=== PATIENT | female | born 1975 | race Caucasian/White ===

== ENCOUNTER 2022-06-05 12:42 | Emergency (ER) | payer OTHER, SELFPAY ==
[2022-06-05 13:16] VITALS: BP 124/79; PULSE 98; RESP 18; TEMP 36.6; O2SAT 98
--- NOTE | 2022-06-05 13:33 | CRLHL7_ITS ---
For Patients: As a result of the Cures Act, medical imaging exams and procedure reports are released immediately into your electronic medical record. You may view this report before your referring provider. If you have questions, please contact your health care provider. Indication: Fall on outstretched hand, elbow pain Comparison: None available. Technique: AP, lateral, and oblique views right elbow were obtained. Findings: There is a nondisplaced fracture of the radial head. No other displaced injuries are appreciated. The joint spaces are grossly preserved. There is moderate elbow joint effusion. Impression: Nondisplaced fracture of the radial head with elbow joint effusion. Dictated by Calvin Sebastian MD @ 06/05/2022 2:49:21 PM (Electronically Signed)
[2022-06-05] MEDS: ACETAMINOPHEN 500 MG TABLET 1000 MG PO (14:23)
--- NOTE | 2022-06-06 00:48 | ED_ITS ---
HPI - Extremity Injury (Upper) General Chief Complaint: Extremity Pain/Injury, Upper Stated Complaint: Fell, R arm injury Time Seen by Provider: 06/05/22 13:21 History of Present Illness HPI narrative: 46-year-old woman presenting to the emergency department complaint of right arm pain. Evidently slipped while at work sustaining a FOOSH type injury of her right arm. She is right-handed. No shoulder area pain. Did not strike her head. There was no loss of consciousness. No shortness of breath or chest pain. I believe has taken some ibuprofen. Describes pain radiating out somewhat from the elbow. Not having pain at the wrist or in her hand. No loss of sensation. Works as a remedial teacher. Related Data Home Medications Medication Instructions Recorded Confirmed tamoxifen 20 mg tablet 20 mg PO DAILY 06/05/22 06/05/22 venlafaxine 75 mg tablet 75 mg PO DAILY 06/05/22 06/05/22 Allergies Allergy/AdvReac Type Severity Reaction Status Date / Time naproxen [From Aleve] Allergy Mild Hives Verified 06/05/22 13:21 Review of Systems Status of ROS: Reports: 6 or more systems reviewed and unremarkable except as noted in History and below [facility] Social History Smoking Status: Never smoker Do you use any of these nicotine containing products: None Second hand tobacco smoke exposure: No How often do you have a drink containing alcohol: monthly or less How many standard drinks containing alcohol do you have on a typical day: 1 or 2 How often do you have six or more drinks on one occasion: Never AUDIT-C Alcohol total score: 1 Non-prescribed substance use: denies use Exam Narrative: Exam Narrative: Pleasant. Right arm on pillow. Slightly flexed at the elbow. Head looks to be atraumatic. GCS of 15. Cranial nerves 2-12 intact. Becomes a little tearful during time here in the ER. Breathing easily. No pain to palpation about the back or neck. No pain about the shoulder. Firm swelling in the radial ulnar groove about the right elbow. No erythema. Supination and pronation does cause pain in the upper forearm/elbow. No pain to palpation about the distal forearm/radius. Opening closing hand without difficulty. Intact sensation Const: Vital Signs, click to edit/add: Vital Signs - 24 hr 06/05/22 13:16 Temperature 97.8 F Pulse Rate [Right Pulse Oximeter] 98 Respiratory Rate 18 Blood Pressure [Le ft Upper Arm] 124/79 Pulse Oximetry 98 Oxygen Delivery Me thod Room Air Documenting provider has reviewed patient's vital signs: yes Course Vital Signs Vital signs: Initial Vital Signs Temperature 97.8 F 06/05/22 13:16 Temperature Source Temporal Artery Scan 06/05/22 13:16 Pulse Rate 98 06/05/22 13:16 Pulse Rhythm 06/05/22 13:16 Pulse Strength 3+ Normal 06/05/22 13:16 Respiratory Rate 18 06/05/22 13:16 Blood Pressure 124/79 06/05/22 13:16 Blood Pressure Mean 94 06/05/22 13:16 Blood Pressure Position Sitting 06/05/22 13:16 Pulse Oximetry 98 06/05/22 13:16 Oxygen Delivery Method 06/05/22 13:16 Vital Signs Temperature 97.8 F 06/05/22 13:16 Pulse Rate 98 06/05/22 13:16 Respiratory Rate 18 06/05/22 13:16 Blood Pressure 124/79 06/05/22 13:16 Pulse Oximetry 98 06/05/22 13:16 Oxygen Delivery Method 06/05/22 13:16 Temperature 97.8 F 06/05/22 13:16 Pulse Rate 98 06/05/22 13:16 Respiratory Rate 18 06/05/22 13:16 Blood Pressure 124/79 06/05/22 13:16 Pulse Oximetry 98 06/05/22 13:16 Oxygen Delivery Method 06/05/22 13:16 MDM - Extremity Injury (Upper) MDM Narrative Medical decision making narrative: I would suspect given the swelling/joint effusion around the elbow that there is a fracture in the elbow. Considering supination pronation of forearm suspect radial head fracture. Ordered for ice and acetaminophen. Three-view x-ray of the right elbow reviewed by me with posterior fat pad anterior sail sign mildly present confirming joint effusion, and what looks to be a nondisplaced fracture of the radial head that I think tracks into the articular surface. Given arm sling. Would be encouraging early mobility. Discharge Plan Discharge Clinical Impression: Fracture of head of radius Patient Disposition: Home, Self-Care Condition: Stable Additional Instructions: Rest/protect over this next week by wearing the arm sling. Can start stretching exercises now as able. Please see handout. Can take up to 800 mg of ibuprofen or up to 1000 mg of acetaminophen per dose. Alternative to the ibuprofen might be up to 500 mg of naproxen 2 times daily. Ice your elbow as discussed a few times daily over the next few days. Follow-up between 1-2 weeks for re-evaluation with primary care or Orthopedics. Orthopedics phone number locally is [phone] Prescriptions: No Action venlafaxine 75 mg tablet 75 mg PO DAILY tamoxifen 20 mg tablet 20 mg PO DAILY Follow Up/Referrals: Denae Ryan MD [Primary Care Provider] - Stand Alone Forms: [employer] Info Instructions
== END 2022-06-05 15:56 | disposition home or self-care (01) ==
PROVIDERS: Emergency Provider Family Medicine; PCP Family Medicine
DX: S52.124A Nondisplaced fracture of head of right radius, initial encounter for closed fracture (principal); W01.0XXA Fall on same level from slipping, tripping and stumbling without subsequent striking against object, initial encounter
CPT/HCPCS: 73080; 99283; A9270

== ENCOUNTER 2022-09-04 16:15 | Outpatient (RCR) | payer OTHER, SELFPAY | END 2022-09-07 09:12 | disposition home or self-care (01) | PROVIDERS: PCP Family Medicine; Visit Provider Physician Assistant Surgical | DX: S52.123A Displaced fracture of head of unspecified radius, initial encounter for closed fracture (principal); Z51.89 Encounter for other specified aftercare | CPT/HCPCS: 97110; 97140; 97165; X5282 ==

== ENCOUNTER 2024-07-26 14:09 | Outpatient (CLI) | payer BC, SELFPAY ==
--- NOTE | 2024-07-26 14:30 | CRLHL7_ITS ---
For Patients: As a result of the Century Cures Act, medical imaging exams and procedure reports are released immediately into your electronic medical record. You may view this report before your referring provider. If you have questions, please contact your health care provider. BILATERAL BREAST MRI WITHOUT AND WITH GADOLINIUM CLINICAL HISTORY: At increased risk for breast cancer due to personal history of right breast atypical lobular hyperplasia. Family history of breast cancer in her paternal grandmother. No current breast related concerns. INDICATION FOR BREAST MRI: High-risk screening breast MRI. COMPARISON STUDIES: Breast MRI 07/26/2023 and mammograms 01/05/2024 and 12/23/2022. CONTRAST: 15 mL IV Dotarem. TECHNIQUE: The patient was positioned prone using a breast coil. Multiple imaging sequences were obtained using 1-1.5 mm thick slices with no gap. The image sequences include T2-weighted STIR in the axial plane, T1-weighted nonfat-saturated gradient echo in the axial plane, pre- and post-contrast T1-weighted FLASH 3D with fat suppression in the axial plane, and T1-weighted FLASH high resolution 3D with fat suppression in the sagittal plane. Image post-processing was performed on a [employer] workstation. Complex 3D rendering including maximum intensity projections (MIPS) and volumetric renderings were obtained to optimize visualization of the extent of pathology and relationship to the nipple, skin, and chest wall. This aids in determining feasibility of breast conservation surgery. Subtraction, multiplanar reconstruction, mean curve determination, and angiogenesis mapping were also performed. The study was technically adequate. FINDINGS: Amount of Fibroglandular Tissue: Scattered fibroglandular tissue. Breast Background Enhancement: Mild. RIGHT Breast: There is no suspicious mass or non-mass enhancement. LEFT Breast: There is no suspicious mass or non-mass enhancement. Lymph Nodes: No abnormal morphology lymph nodes. IMPRESSIONS AND RECOMMENDATIONS: 1. No MRI evidence of malignancy in either breast. 2. Annual screening mammography is recommended. If clinically indicated, continued screening breast MRI may also be performed, staggered at six-month intervals with screening mammography. BI-RADS Category 1: Negative Dictated by Sri Simons MD @ 07/27/2024 1:02:20 PM (Electronically Signed)
== END 2024-07-26 14:10 | disposition home or self-care (01) ==
LOC: MRI 14:10
PROVIDERS: PCP Family Medicine; Visit Provider Clinical Nurse Specialist Adult Health
DX: Z12.39 Encounter for other screening for malignant neoplasm of breast (principal)
CPT/HCPCS: 77049; A9575

== ENCOUNTER 2024-08-18 14:31 | Emergency (ER) | payer BC, SELFPAY ==
--- OUTSIDE RECORDS SUMMARY | 2024-08-18 14:34 | XMS_ITS | Clinical Summary ---
Author Organization [facility] Address [address] [place] [address] Care Team Providers Care Community Health Nurse Supervisor Name Role Phone Connor, Denae Porter MD Primary Care Provider Allergies Active Allergy Reactions Criticality Noted Date Comments Naproxen Hives Medium 12/15/2008 Thimerosal Other - Describe In Comment Field 03/14/2007 Used a contact solution with this in and eyes puffed up. Medications multivitamin (MVI) tablet Take 1 tablet by mouth once daily. 0 1 Active cetirizine-pseudo ephedrine, 5-120 mg, (WAL-ZYR D) 5-120 mg tabletIndications :Subacute pansinusitis Take 1 tablet by mouth 2 times daily. 180 tablet 3 8 Active fluticasone (50 mcg per actuation) nasal solution (FLONASE)Indicati ons:Subacute pansinusitis SHAKE LIQUID AND USE 1 SPRAY IN EACH NOSTRIL TWICE DAILY 48 g 3 1 Active tamoxifen (NOLVADEX) 20 mg tabletIndications :Atypical lobular hyperplasia (ALH) of right breast TAKE 1 TABLET(20 MG) BY MOUTH EVERY DAY 90 Tablet 3 4 Active venlafaxine (EFFEXOR) 75 mg tabletIndications :Anxiety Take 1 Tablet (75 mg) by mouth once daily in the morning. 90 Tablet 2 4 Active Active Problems Problem Noted Date Diagnosed Date Anxiety 02/04/2015 Varicose veins of leg 11/18/2010 Allergic rhinitis, cause unspecified 08/15/2007 Cervical dysplasia Overview (02/27/2021): Age 22 Cryo of cerivix. Plan:Routine screening Encounters Date Type Department Care Team Description 08/03/2024 Orders Only [facility] Scanner 1 scan: (1-Ord) INCOMING RECORDS-MRI, [facility], 08/03/2024 08/02/2024 8:00 AM CDT Office Visit [facility] [address] [place] [address] Veronica Heath, GOOD HUMOR VENDOR Follow Up (High-risk breast cancer screening due to ALH) 08/02/2024 Travel 07/28/2024 Travel 07/28/2024 Orders Only [facility] [address] [place] [address] Veronica Heath, GOOD HUMOR VENDOR 1 scan: (1-Ord) [place], [facility] BREAST BI WO/W CON, 07/26/2024 06/21/2024 Orders Only [facility] [address] [place] [address] [address] Veronica Heath, GOOD HUMOR VENDOR <No scans attached> from Last 3 Months Immunizations Immunization Administration Dates Next Due AMB Influenza, IIV3 (Age >=3 years) Preserve Free (Flu Clinic Only) 03/09/2012 AMB Influenza, IIV3 (Age >=3 years)(Flu Clinic Only) 03/12/2011 AMB Influenza, IIV4 PF (=>6 mos Flulaval,Fluzone Fluarix)(Flu Clinic Only) 03/07/2020 COVID-19 vaccine (Edlogics NTMinuteKey 30mcg/0.3mL) 12YO+ BRAEDEN-SUCROSE PF, MDV 12/18/2021 Hepatitis A (Adult) 12/07/2002,07/16/1997 Hepatitis B (Adult) 06/29/2003,01/24/2003,2002 Influenza A (H1N1), Inactiva ami (Age >=3 Years) 05/22/2009 Influenza RIV4 (Age 18+ Year s) PRESERV FREE 03/20/2023 Influenza, IIV3 (Age 6-35 mos) 03/12/2011 Influenza, IIV3 (Age >=3 years) 02/10/2013,01/31 Influenza, IIV4 03/12/2022,,02/13/2019,2017,03/12/2017,02/18/2016,02/18/2015,0 02/12/2014 MMR 06/29/2003 Td (Age >=7 Years) 09/07/2002 Tdap 12/30/2020,11/18/2010 Tuberculin (PPD) 04/13/2008 Typhoid (injectable) 03/11/2018,12/07/2002 Zoster (Shingrix-RZV, recombinant) 01/05/2024 Family History Medical History Relation Name Comments Diabetes Father Insulin depende nt, DM type II Arthritis Maternal Grandfather Cancer-prostate Maternal Grandfather Heart Disease Maternal Grandfather heart attack Arthritis Maternal Grandmother Other Mother benign breast l umps Arthritis Paternal Grandfather Arthritis Paternal Grandmother Cancer Paternal Grandmother non hod gkins lymphoma Cancer-breast Paternal Grandmother post m enopausal Stroke Paternal Grandmother TIA's, dementia Cancer-colon No Family History Cancer-ovarian No Family History Relation Name Status Comments Father Maternal Grandfather Maternal Grandmother Mother Other bhupinder Alive Paternal Grandfather Paternal Grandmother Son pablo Alive Social History Tobacco Use Types Packs/Day Years Used Date Smoking Tobacco: Never Smokeless Tobacco: Never Tobacco Cessation:Counseling Given: Yes Comments:no exposure Alcohol Use Standard Drinks/Week Comments Yes 0 (1 standard drink = 0.6 oz pure alcohol) rarely, less than 1 drink per month PHQ-2 Answer Date Recorded PHQ-2 TOTAL SCORE 0 01/05/2024 Social Connections Answer Date Recorded Do you often feel lonely or isolated from those around you? 0 01/05/2024 Financial Resource Strain Answer Date R ecorded Difficulty of Paying Living Expenses 3 01/05/2024 Difficulty of Paying Living Expenses Not on file 01/05/2024 Food Insecurity Answer Date Recorded Do you worry your food will run out before you are able to buy more? 1 01/05/2024 Transportation Needs Answer Date Record ed Does lack of transportation keep you from medica l appointments? 1 01/05/2024 Does lack of transportation keep you from work, meetings or getting things that you need? 1 01/05/2024 Housing Stability Answer Date Recorded What is your housing situation today? 1 01/05/2024 Utilities Answer Date Recorded Do you have trouble paying f or utilities (for example, heat, electricity, water, phone)? 1 01/05/2024 Comments No Sex and Gender Information Value Date Recorded Sex Assigned at Not on file Legal Sex Female 5:27 AM FACTORER Gender Identity Not on file Sexual Orientation Not on file Obstetrics History Para Term AB IAB SAB Ectopic Multiple Livin g Live Births 1 1 1 Date Outcome GA Total Labor Labor/2nd/3rd Weight Sex Type Anes PTL Marilyn A1 A5 Name Clin SAB Last Filed Vital Signs Vital Sign Reading Time Taken Comments Blood Pressure 116/70 08/02/2024 7:54 AM CDT Pulse 88 08/02/2024 7:54 AM CDT Temperature 36.7 C (98 F) 01/05/2024 1:59 PM CDT Respiratory Rate 16 08/02/2024 7:54 AM CDT Oxygen Saturation 99% 01/05/2024 1:59 PM CDT Inhaled Oxygen Concentration - - Weight 69.7 kg (153 lb 9.6 oz) 01/05/2024 1:59 P M CDT Height 167.6 cm (5' 6) 01/05/2024 1:59 PM CDT Body Mass Index 24.79 01/05/2024 1:59 PM CDT Plan of Treatment Health Maintenance Due Date Last Done Comments Hepatitis C screening for ag e 18-79 08/07/1991 Pneumococcal series for age 50+ (1 of 1 - PCV) 08/07/2023 Influenza Vaccine (#1) 2024 , 03/12/2022, 02/10/2021, Additional history exists Zoster (shingles) series for age 50+ (2 of 2) 03/01/2024 01/05/2024 COVID-19 vaccine series (7 - Moderna risk season) 2024 03/01/2024, 03/20/2023, 12/18/2021, Additional history exists Lipids for age 45-75 11/15/2024 11/16/2019, 02/12/2014, 11/19/2010, Additional history exists BMI (ht and wt on same day) for age 18+ 01/04/2025 01/05/2024, 12/24/2022, 09/28/2022, Additional history exists Depression screening for age 12+ 01/04/2025 01/05/2024, 12/24/2022, 09/28/2022, Additional history exists Mammogram for age 45-75 01/04/2025 01/05/20 24, 12/23/2022, 10/16/2021, Additional history exists Pap test for age 21-65 02/10/2026 , 02/10/2021, 02/18/2016, Additional history exists Tetanus booster 12/30/2030 12/30/2020, 10/23, 09/07/2002 Colonoscopy through age 75 12/31/203112/30, 12/30/2021, 12/30/2021 HIV for age 15-65 Completed 04/13/2008 Tdap Completed 12/30/2020, 11/18/2010 Procedures Procedure Name Priority Date/Time Associated Diagnosis Comments SCAN CORRESP-IMAGING 08/03/2024 12:00 AM CDT MR BREAST CAD WWO BILATERAL Routine 07/26/2024 12:00 AM FACTORER Breast cancer screening, high risk patient XR MAMMO MIRIAM BILAT SCREEN Routine 01/05/2024 1:25 PM CDT Visit for screening mammogram COLONOSCOPY SCREENING Routine 12/30/2021 12:53 PM CDT Screening for colon cancer HPV HIGH RISK Routine 02/10/2021 4:15 PM CDT Screening for cervical cancer LIPID PANEL W REFLEX MEASURED LDL Routine 11/16/2019 8:38 AM CDT Lipid screening ANTI HIV 1/2 Routine 04/13/2008 4:31 PM FACTORER Pre-Adoption Interview from Last 3 Months or Most Recently Relevant to Health Maintenance Results * SCAN CORRESP-IMAGING (08/03/2024 12:00 AM CDT) Anatomical Region Laterality Modality Other us Scanner OTHER Final Result * MR BREAST CAD WWO BILATERAL (07/26/2024 12:00 AM FACTORER) Anatomical Region Laterality Modality BREASTS, Breast Left, Breast Right Bilateral Magnetic Resonance us Veronica Heath GOOD HUMOR VENDOR MR Final Resul t * XR MAMMO MIRIAM BILAT SCREEN (01/05/2024 1:25 PM CDT) Anatomical Region Laterality Modality BREASTS, Breast Left, Breast Right Bilateral Mammography Impressions 01/06/2024 3:37 PM CDT There is no radiographic evidence for malignancy. Recommend annual mammograms. MAMMOGRAM ASSESSMENT: ACR 1 Negative PATIENTS: You will also receive a letter with your examination results in an easy to read format. If you have questions about your results, please contact your referring provider. Narrative 01/06/2024 3:37 PM CDT For Patients: As a result of the Century Cures Act, medical imaging exams and procedure reports are released immediately into your electronic medical record. You may view this report before your referring provider. If you have questions, please contact your health care provider. XR MAMMO MIRIAM BILAT SCREEN [[id number]] CLINICAL HISTORY: This is an asymptomatic 48 y.o. patient. INDICATION FOR EXAM: Mammogram Screening. TECHNIQUE: CC & MLO views were obtained. This study was evaluated with the assistance of Computer-Aided Detection. Breast Tomosynthesis was used in interpretation. COMPARISON FILM: Yes 12/23/22 [facility] 10/16/21 [employer] FINDINGS: The breasts are heterogeneously dense, which may obscure small masses. There are no dominant masses, suspicious micro calcifications or areas of architectural distortion. us Denae Ryan MD MAMMO Final R esult * COLONOSCOPY (12/30/2021 11:14 AM CDT) 12/30/2021 11:1 4 AM CDT Narrative Transcriptions Tin Hall MD - 12/30/2021 1:58 PM CDT Patient Name: August Jayy Procedure Date: 12/30/2021 Gender: Female Date of : 1975 Admit Type: Outpatient Procedure: Colonoscopy Proceduralist: Tin Hall MD , Payton Ibrahim RN(Nurse) Referring MD: Denae Ryan Indications/Pre-Op Diagnosis: Screening for colorectal malignant neoplasm, This is the patient's first colonoscopy Medications: Fentanyl 200 micrograms IV, Midazolam 6 mgIV, The level of sedation administered wasmoderate Procedure Description: The patient had risks, benefits and alternatives explained to andgave informed consent. The patient had a stable cardiopulmonary status and judged an adequate candidate for conscious sedation. The colonoscope was passed through the anus and advanced to thececum, identified by appendiceal orifice and ileocecal valve. Thecolonoscopy was performed without difficulty. The patient tolerated the procedure well. The quality of the bowel preparation was good. The ileocecal valve, appendiceal orifice, and rectum were photographed. Complications: No immediate complications. Estimated Blood Loss & Specimen: Estimated blood loss: none. Specimen collected - None Findings: The perianal and digital rectal examinations were normal. The entire examined colon appeared normal. Impressions/Post-Op Diagnosis: - The entire examined colon is normal. - No specimens collected. Recommendation: - Patient has a contact number available for emergencies. The signsand symptoms of potential delayed complications were discussed with the patient. Return to normal activities tomorrow. Written discharge instructions were provided to the patient. - Resume previous diet. - Continue present medications. - Repeat colonoscopy in 10 years for screening purposes. - Patient's sedation for a repeat study will require Anesthesia staff assistance. Moderate Sedation: Moderate (conscious) sedation was administered by the endoscopy nurse and supervised by the endoscopist. The following parameters were monitored: oxygen saturation, heart rate, respiratory rate, blood pressure, adequacy of pulmonary ventilation and reponse to care. Please refer to the patient's medical record flowsheets and nursing notes for moderate sedation details. Total physician intraservice time was 35 minutes. Tin Hall MD 12/30/2021 1:57:49 PM This report has been signed electronically. Note Initiated On: 12/30/2021 11:14 AM Procedure Code(s): --- Professional --- 17830, Colonoscopy, flexible; diagnostic, including collection of specimen(s) bybrushing or washing, when performed (separateprocedure) Diagnosis Code(s): --- Professional --- Z12.11, Encounter for screening formalignant neoplasm of colon CPT copyright 2020 [employer]. All rights reserved. The codes documented in this report are preliminary and upon generator assembler reviewmay be revised to meet current compliance requirements. Scope In: 1:19:02 PM Scope Withdrawal Time 0 hours 6 minutes 4 seconds Scope Out: 1:53:36 PM us Tin Hall MD PROCEDURE ORD Final Res ult * HPV HIGH RISK (02/10/2021 4:15 PM CDT) TYPE 16 Negative Negative 02/12/2021 11:39 AM CDT [facility] TYPE 18 Negative Negative 02/12/2021 11:39 AM CDT [facility] OTHER HIGH RISK TYPES Negative Negative 02/12/2021 11:39 AM CDT [facility] Other (Cervical) Non-Blood / Unknown 02/10/2021 4:15 PM CDT 02/11/2021 9:28 AM CDT [facility]ative [facility] 02/12/2021 11:39 AM CDT HPV types 16, 18, 31, 33, 35, 39, 45, 51, 52, 56, 58, 59, 66 and 68 DNA were undetectable or below the pre-set threshold. Methodology: Patricia Perry 4800 HPV Test Denae Ryan MD MICROBIOLOGY Final R esult [facility] [address] [place] [address], [place] * LIPID PANEL W REFLEX MEASURED LDL (11/16/2019 8:38 AM CDT) CHOLESTEROL,TOTAL 171 100 - 199 mg/dL 11/16/2019 2:44 PM CDT [facility] TRIGLYCERIDES 51 <150 mg/dL 11/16/2019 2:44 PM CDT [facility] HDL CHOLESTEROL 73 >40 mg/dL 0 2:44 PM CDT [facility] NON-HDL CHOLESTEROL 98 <145 mg/dl 11/16/2019 2:44 PM CDT [facility] CHOL/HDL RATIO 2.34 <4.50 11/16/2019 2:44 PM CDT [facility] LDL CHOLESTEROL 88 <=130 mg/dL 11/16/2019 2:44 PM CDT [facility] PROVIDER ORDERED STATUS RANDOM 11/16/2019 2:44 PM CDT [facility] Blood BLOOD SPECIMEN / Unknown Venipuncture / Unknown 11/16/2019 8:38 AM CDT 11/16/2019 8:38 AM CDT Denae Ryan MD CHEMISTRY Final R esult [facility] [address] [place] [address], [place] * HIV (04/13/2008 4:31 PM FACTORER) ANTI HIV 1/2 Non-reacti ve [facility] Blood specimen (specimen) BLOOD SPECIMEN / Unknown 04/13/2008 4:31 PM FACTORER 04/13/2008 4:27 PM FACTORER Roseann Krueger FREIGHT SOLICITOR SEND OUTS Final Result [facility] INTERNAL ZIP [phone] [address] from Last 3 Months or Most Recently Relevant to Health Maintenance Insurance [facility] Advance Directives * Full Code (Latest Code Status on File) Date Activated Date Inactivated Comments 03/07/2021 9:33 AM 03/07/2021 6:33 PM Question Answer Comments Code Status Discussion: Discussed Care Teams Community Health Nurse Supervisor Relationship Specialty Start Date End Date Denae Ryan MD [address] [place] [address] PCP - General Family Practice 11/29/12
[2024-08-18 15:26] VITALS: BP 118/76; PULSE 95; RESP 16; TEMP 36.8; O2SAT 97; BMI 24.2
--- NOTE | 2024-08-18 16:20 | CRLHL7_ITS ---
For Patients: As a result of the Cures Act, medical imaging exams and procedure reports are released immediately into your electronic medical record. You may view this report before your referring provider. If you have questions, please contact your health care provider. Indication: Injury in May. Technique: Three views left 3rd finger. Comparison: None. Findings/Impression: No acute displaced fracture or malalignment. No soft tissue swelling. Joint spaces are maintained. Bony mineralization is age appropriate. Dictated by Herminio Brown MD @ 08/18/2024 4:49:33 PM (Electronically Signed)
--- NOTE | 2024-08-18 16:23 | ED_ITS ---
HPI - General Adult General Date Seen: 08/18/24 Chief complaint: Animal Bite Stated complaint: Dog bite on Left leg Time Seen by Provider: 08/18/24 16:04 History of Present Illness HPI narrative: Patient is a 49-year-old with 2 dogs at home who do not get along. They started to go after each other and she was caught in the middle. She sustained several bites to her lower leg. Her tetanus is up-to-date and dog's immunizations are up-to-date. Bleeding controlled, no other acute complaints. She does note as an aside that in May she injured her left 3rd finger at the PIP joint. She thought it would get better but she still notes that the joint looks kind of swollen and range of motion is a little bit limited compared to the right. She is wondering if that could be x-rayed. Related Data Home Medications ?Medication ?Instructions ?Recorded ?Confirmed tamoxifen 20 mg tablet 20 mg PO DAILY 06/05/22 08/18/24 venlafaxine 75 mg tablet 75 mg PO DAILY 06/05/22 08/18/24 Allergies Allergy/AdvReac Type Severity Reaction Status Date / Time naproxen (From Aleve) Allergy Mild Hives Verified 08/18/24 15:32 thimerosal Allergy Verified 08/18/24 15:32 [facility] PFS Surgical History (Updated 06/17/22 @ 17:09 by Ludy Reyes ~ [facility], [facility]) History of tonsillectomy ?Z90.89 - Acquired absence of other organs (ICD-10) H/O breast biopsy ?Z98.890 - Other specified postprocedural states (ICD-10) Social History (Reviewed 06/17/22 @ 17:00 by Ludy Reyes ~ [facility], [facility]) Smoking Status: Never smoker Do you use any of these nicotine containing products: None Second hand tobacco smoke exposure: No How often do you have a drink containing alcohol: monthly or less How many standard drinks containing alcohol do you have on a typical day: 1 or 2 How often do you have six or more drinks on one occasion: Never AUDIT-C Alcohol total score: 1 Non-prescribed substance use: denies use service: No Exam Narrative: Exam Narrative: Vital signs reviewed In general, alert, well-appearing woman. Examination of the lower extremity shows several small more superficial wounds and then two slightly deeper wounds 1 on the lateral lower leg and 1 on the medial lower leg. Both of these are about 1 cm in length, 1 gapes open more than the other. No significant bleeding. The left 3rd PIP joint is just slightly swollen compared to the right, she has good range of motion although perhaps slightly less flexion than compared to the right. She has full extension. CMS intact. Const: Vital Signs, click to edit/add: Vital Signs - 24 hr 08/18/24 15:26 Temperature 98.2 F Pulse Rate [Pulse Oximeter] 95 Respiratory Rate 16 Blood Pressure [Ri ght Upper Arm] 118/76 Pulse Oximetry 97 Oxygen Delivery Me thod Room Air Course Course ED Course: I recommended closure for the 2 larger wounds, the smaller ones I think will do fine without closure. Procedure note: The larger wounds were anesthetized using lidocaine with epinephrine. Irrigated by the hvac technician residential with several 100 mL of normal saline. Closed using 4-0 nylon, the more medial wound I closed with 2 simple interrupted superficial sutures. The more lateral 1 on closer review was composed of 2 parallel wounds, 1 of these was about 0.5 cm and I close this with 1 symptom full interrupted superficial suture, the other was about 1.5 cm and I close this with 3 simple interrupted superficial sutures. She tolerated this well without immediate complication. Dressing was applied by the hvac technician residential. I did do an x-ray of her left 3rd finger, on one view I can see perhaps the tiny little avulsion type fracture that might have occurred a couple of months ago, radiology reads the x-ray is negative for any acute findings aside from maybe a little soft tissue swelling around the PIP joint. Overall, I am not terribly concerned about her range of motion, recommended to just give this little more time, can certainly see primary care if she does not feel that it is continuing to improve over time. Recommended suture removal in 7-10 days. Will prescribe Augmentin for her, discussed reasons to return such as increasing pain, swelling, redness, drainage. Vital Signs Vital signs: Initial Vital Signs Temperature 98.2 F 08/18/24 15:26 Temperature Source Temporal Artery Scan 08/18/24 15:26 Pulse Rate 95 08/18/24 15:26 Respiratory Rate 16 08/18/24 15:26 Blood Pressure 118/76 08/18/24 15:26 Blood Pressure Mean 90 08/18/24 15:26 Blood Pressure Position Sitting 08/18/24 15:26 Pulse Oximetry 97 08/18/24 15:26 Oxygen Delivery Method Room Air 08/18/24 15:26 Vital Signs Temperature 98.2 F 08/18/24 15:26 Pulse Rate 95 08/18/24 15:26 Respiratory Rate 16 08/18/24 15:26 Blood Pressure 118/76 08/18/24 15:26 Pulse Oximetry 97 08/18/24 15:26 Oxygen Delivery Method Room Air 08/18/24 15:26 Temperature 98.2 F 08/18/24 15:26 Pulse Rate 95 08/18/24 15:26 Respiratory Rate 16 08/18/24 15:26 Blood Pressure 118/76 08/18/24 15:26 Pulse Oximetry 97 08/18/24 15:26 Oxygen Delivery Method Room Air 08/18/24 15:26 Medical Decision Making Imaging Data Finger x-ray: Attestation: I have reviewed the pertinent imaging results. Radiologist's impression: [place] [address] Diagnostic Imaging Report Patient: JayyAugust MR#: [id number] : 1975 Acct:[id number] Loc: ED Service Date: 08/18/[address]: Ordering Physician: Kerry Rodríguez M.D. Date of Service: 08/18/24 Procedure(s): XR 3rd finger LT Accession Number(s): [id number] cc: Kerry Rodríguez M.D.; Denae Ryan M.D.~ ADDENDUM Indication: Injury in May. Technique: Three views left 3rd finger. Comparison: None. Findings/Impression: No acute displaced fracture or malalignment. No soft tissue swelling. Joint spaces are maintained. Bony mineralization is age appropriate. Dictated by Herminio Brown MD @ 08/18/2024 4:49:33 PM ----- ADDENDUM ----- Addendum: : Upon further review there is mild soft tissue swelling around the proximal interphalangeal joint of the 3rd digit. Dictated by Herminio Brown MD @ Aug 18 2024 4:50PM (Electronically Signed) For Patients: As a result of the Cures Act, medical imaging exams and procedure reports are released immediately into your electronic medical record. You may view this report before your referring provider. If you have questions, please contact your health care provider. Indication: Injury in May. Technique: Three views left 3rd finger. Comparison: None. Findings/Impression: No acute displaced fracture or malalignment. No soft tissue swelling. Joint spaces are maintained. Bony mineralization is age appropriate. Dictated by Herminio Brown MD @ 08/18/2024 4:49:33 PM Discharge Plan Discharge Clinical Impression: Laceration of left leg, Bite by animal Patient Disposition: Home, Self-Care Condition: Improved Instructions: Animal Bite (ED) Additional Instructions: Take Augmentin as prescribed. As discussed, wound care should include keeping this area clean, covered with a bandage and an ointment such as Vaseline or Aquaphor. Return for signs of infection such as increasing pain, swelling, significant redness or drainage. Suture removal in 7-10 days. Prescriptions: No Action venlafaxine 75 mg tablet 75 mg PO DAILY tamoxifen 20 mg tablet 20 mg PO DAILY Follow Up/Referrals: Denae Ryan MD [Primary Care Provider] - Stand Alone Forms: Directly Info Instructions
--- OUTSIDE RECORDS SUMMARY | 2024-08-18 17:19 | XMS_ITS | Clinical Summary ---
Author Organization [facility] Address [address] [place] [id number] Care Team Providers Care Cementing Machine Operator Name Role Phone Connor, Denae Porter MD [...] Department Care Team Description 08/03/2024 Orders Only [facility] Scanner 1 scan: (1-Ord) INCOMING RECORDS-MRI, [facility], 08/03/2024 08/02/2024 8:00 AM CDT [place] [facility] [address] [place] [address] Veronica Heath, HEATING EQUIPMENT INSTALLER Follow Up (High-risk breast cancer screening due to [facility]) 08/02/2024 Travel 07/28/2024 Travel 07/28/2024 Orders Only [facility] [address] [place] [address] [address] Veronica Heath, HEATING EQUIPMENT INSTALLER 1 scan: (1-Ord) [place] BREAST BI WO/W CON, 07/26/2024 06/21/2024 Orders Only [facility] [address] [place] [address] [address] Veronica Heath, HEATING EQUIPMENT INSTALLER <No scans attached> from Last 3 Months Immunizations Immunization Administration Dates Next Due AMB Influenza, IIV3 (Age >=3 years) Preserve Free (Flu Clinic Only) 03/09/2012 AMB Influenza, IIV3 (Age >=3 years)(Flu Clinic Only) 03/12/2011 AMB Influenza, IIV4 PF (=>6 mos Flulaval,Fluzone Fluarix)(Flu Clinic Only) 03/07/2020 COVID-19 vaccine ([employer] 30mcg/0.3mL) 12YO+ BRAEDEN-SUCROSE PF, MDV 12/18/2021 Hepatitis [...] on file Legal Sex Female 5:27 AM METHANE GAS COLLECTION SYSTEM OPERATOR Gender Identity Not on file Sexual Orientation [...] CAD WWO BILATERAL Routine 07/26/2024 12:00 AM METHANE GAS COLLECTION SYSTEM OPERATOR Breast cancer screening, high risk patient XR MAMMO MIRIAM BILAT SCREEN Routine 01/05/2024 1:25 PM CDT Visit for screening mammogram COLONOSCOPY SCREENING Routine 12/30/2021 12:53 PM CDT Screening for colon cancer HPV HIGH RISK Routine 02/10/2021 4:15 PM CDT Screening for cervical cancer LIPID PANEL W REFLEX MEASURED LDL Routine 11/16/2019 8:38 AM CDT Lipid screening ANTI HIV 1/2 Routine 04/13/2008 4:31 PM METHANE GAS COLLECTION SYSTEM OPERATOR Pre-Adoption Interview from Last 3 Months or Most Recently Relevant to Health Maintenance Results * SCAN CORRESP-IMAGING (08/03/2024 12:00 AM CDT) Anatomical Region Laterality Modality Other us Scanner OTHER Final Result * MR BREAST CAD WWO BILATERAL (07/26/2024 12:00 AM METHANE GAS COLLECTION SYSTEM OPERATOR) Anatomical Region Laterality Modality BREASTS, Breast Left, Breast Right Bilateral Magnetic Resonance us Veronica Heath HEATING EQUIPMENT INSTALLER MR Final Resul t * XR MAMMO [...] care provider. XR MAMMO MIRIAM BILAT SCREEN [[id number]] CLINICAL HISTORY: This is an asymptomatic 48 y.o. patient. INDICATION FOR EXAM: Mammogram Screening. TECHNIQUE: CC & MLO views were obtained. This study was evaluated with the assistance of Computer-Aided Detection. Breast Tomosynthesis was used in interpretation. COMPARISON FILM: Yes 12/23/22 [facility] 10/16/21 Social 2 Step FINDINGS: The breasts are heterogeneously dense, which [...] 11:14 AM Procedure Code(s): --- Professional --- 51590, Colonoscopy, flexible; diagnostic, including collection of specimen(s) bybrushing or washing, when performed (separateprocedure) Diagnosis Code(s): --- Professional --- Z12.11, Encounter for screening formalignant neoplasm of colon CPT copyright 2020 [employer]. All rights reserved. The codes documented in this report are preliminary and upon applications sales consultant reviewmay be revised to meet current compliance requirements. Scope In: 1:19:02 PM Scope Withdrawal Time 0 hours 6 minutes 4 seconds Scope Out: 1:53:36 PM us Tin Hall MD PROCEDURE ORD Final Res ult * HPV HIGH RISK (02/10/2021 4:15 PM CDT) TYPE 16 Negative Negative 02/12/2021 11:39 AM CDT [facility] TYPE 18 Negative Negative 02/12/2021 11:39 AM CDT [facility] OTHER HIGH RISK TYPES Negative Negative 02/12/2021 11:39 AM CDT [facility] Other (Cervical) Non-Blood / Unknown 02/10/2021 4:15 PM CDT 02/11/2021 9:28 AM CDT [facility]ative [facility] 02/12/2021 11:39 AM CDT HPV types 16, 18, 31, 33, 35, 39, 45, 51, 52, 56, 58, 59, 66 and 68 DNA were undetectable or below the pre-set threshold. Methodology: Patricia Perry 4800 HPV Test Denae Ryan MD MICROBIOLOGY Final R esult [facility] [address] [place] [address], [place] * LIPID PANEL W REFLEX MEASURED LDL (11/16/2019 8:38 AM CDT) CHOLESTEROL,TOTAL 171 100 - 199 mg/dL 11/16/2019 2:44 PM CDT [facility] TRIGLYCERIDES 51 <150 mg/dL 11/16/2019 2:44 PM CDT [facility] HDL CHOLESTEROL 73 >40 mg/dL 0 2:44 PM CDT [facility] NON-HDL CHOLESTEROL 98 <145 mg/dl 11/16/2019 2:44 PM CDT [facility] CHOL/HDL RATIO 2.34 <4.50 11/16/2019 2:44 PM CDT [facility] LDL CHOLESTEROL 88 <=130 mg/dL 11/16/2019 2:44 PM CDT [facility] PROVIDER ORDERED STATUS RANDOM 11/16/2019 2:44 PM CDT [facility] Blood BLOOD SPECIMEN / Unknown Venipuncture / Unknown 11/16/2019 8:38 AM CDT 11/16/2019 8:38 AM CDT Denae Ryan MD CHEMISTRY Final R esult [facility] [address] [place] [address], [place] * HIV (04/13/2008 4:31 PM METHANE GAS COLLECTION SYSTEM OPERATOR) ANTI HIV 1/2 Non-reacti ve [facility] Blood specimen (specimen) BLOOD SPECIMEN / Unknown 04/13/2008 4:31 PM METHANE GAS COLLECTION SYSTEM OPERATOR 04/13/2008 4:27 PM METHANE G[employer] COLLECTION SYSTEM OPERATOR Roseann Krueger MATCH MARKER SEND OUTS Final Result [facility] [place]NAL ZIP [id number] [address] from Last 3 Months or Most Recently Relevant to Health Maintenance Insurance [facility] Advance Directives * Full Code (Latest Code Status on File) Date Activated Date Inactivated Comments 03/07/2021 9:33 AM 03/07/2021 6:33 PM Question Answer Comments Code Status Discussion: Discussed Care Teams Cementing Machine Operator Relationship Specialty Start Date End Date Denae Ryan MD [address] [place] [address] PCP - General Family Practice 11/29/12
== END 2024-08-18 17:43 | disposition home or self-care (01) ==
LOC: ED 17:18
PROVIDERS: Emergency Provider Emergency Medicine; PCP Family Medicine
DX: S81.852A Open bite, left lower leg, initial encounter (principal); R22.32 Localized swelling, mass and lump, left upper limb; W54.0XXA Bitten by dog, initial encounter
CPT/HCPCS: 12002; 73140; 99283; 99284